=== PATIENT | male | born 1990 | race Caucasian/White ===

== ENCOUNTER 2019-09-12 13:17 | Emergency (ER) | payer OTHER ==
[~2019-09-12 13:17] MED LIST: SINGULAIR4 MG OR
[2019-09-12] MEDS ORDERED: KEFLEX500 M1 PO ×2 (15:20)
[2019-09-12 15:52] VITALS: BP 138/83
== END 2019-09-12 15:55 | disposition home or self-care (01) | DRG 605 ==
LOC: ED 13:17
PROC: 0HQKXZZ Repair Right Lower Leg Skin, External Approach (ICD-10-PCS; principal; 2019-09-12)
DX: S81.011A Laceration without foreign body, right knee, initial encounter (principal); W55.22XA Struck by cow, initial encounter; Y93.89 Activity, other specified

== ENCOUNTER 2019-09-23 09:03 | Emergency (ER) | payer OTHER ==
[~2019-09-23] VITALS: Ht 182.9 cm; Wt 127.2 kg
[~2019-09-23 09:03] MED LIST changes: +KEFLEX500 M1 PO
[2019-09-23 09:20] VITALS: BP 146/75
== END 2019-09-23 09:23 | disposition home or self-care (01) | DRG 950 ==
LOC: ED 09:03
DX: S81.011D Laceration without foreign body, right knee, subsequent encounter (principal); X58.XXXD Exposure to other specified factors, subsequent encounter